=== PATIENT | female | born 1945 | race Two or more races ===

== ENCOUNTER 2021-03-02 21:15 | Inpatient (IN) | payer MEDICARE, OTHER ==
[~2021-03-02] VITALS: Ht 165.1 cm; Wt 93.0 kg
[2021-03-02 22:52] LABS: BASOPHILS % (AUTO) 0.2 % (0.0-2.0); HEMATOCRIT 36 % (33-45); HEMOGLOBIN 12.1 g/dL (11.5-14.8); LYMPHOCYTES # (AUTO) 2.4 K/uL (0.8-4.8); LYMPHOCYTES % (AUTO) 15.6 % (20.0-44.0); MEAN CORPUSCULAR HGB CONC 34 g/dl (31.0-36.0); MEAN CORPUSCULAR VOLUME 89 fL (82-100); MONOCYTES # (AUTO) 0.7 K/uL (0.1-1.30); MONOCYTES % (AUTO) 4.7 % (2.0-12.0); NEUTROPHILS # (AUTO) 11.9 K/uL (1.8-8.9); NEUTROPHILS % (AUTO) 78.5 % (43.0-81.0); PLATELET COUNT (AUTO) 265 K/uL (150-450); RED BLOOD CELL COUNT(AUTO) 4.01 MIL/uL (4.0-5.2); WHITE BLOOD COUNT (AUTO) 15.2 K/uL (4.3-11.0)
[2021-03-02 23:05] LABS: CALCIUM, SERUM 8.4 mg/dL (8.5-10.1); CARBON DIOXIDE 22 mmol/L (21-32); CHLORIDE 104 mmol/L (98-107); CREATININE 1.3 mg/dL (0.6-1.3); GLUCOSE 135 mg/dL (74-106); POTASSIUM 3.5 mmol/L (3.5-5.1); SODIUM SERUM 138 mmol/L (136-145); UREA NITROGEN, BLOOD 23 mg/dL (7-18)
[2021-03-02 23:19] LABS: BILIRUBIN,URINE Negative (NEGATIVE); COLOR,URINE YELLOW (YELLOW); LEUKOCYTE ESTERASE ,URINE Moderate (NEGATIVE); NITRITE, URINE Positive (NEGATIVE); PH,URINE 5.5 (5.0-8.0); PROTEIN,URINE Trace mg/dl (NEGATIVE); UGLUCOSE Negative (NEGATIVE); UROBILINOGEN,URINE 0.2 EU/dL (0.2)
[2021-03-03 00:05] LABS: BACTERIA,URINE Many /HPF (None Seen); SQUAMOUS EPITHELIAL CELL,UR Few /HPF (None Seen); WBC,URINE 21-50 /HPF (0-3)
--- NOTE | 2021-03-03 01:11 | NUR ---
MOVE PACKET SUBMITTED AND WILL OBTAIN AUTHORIZATION
--- NOTE | 2021-03-03 01:17 | NUR ---
COVID SWAB COLLECTED AND SENT TO LAB
[2021-03-03] MEDS ORDERED: NITROFURANTOIN/NITROFURAN MONOHYDRATE 100 MG CAPSULE PO ONE (01:30)
[2021-03-03] MEDS ORDERED: NITROFURANTOIN/NITROFURAN MONOHYDRATE 100 MG CAPSULE ONE (01:59)
--- NOTE | 2021-03-03 02:04 | NUR ---
FOLLLOWED UP WITH LAB. COVID SWAB JUST GOT PICKED UP FROM STAT LAB
--- NOTE | 2021-03-03 03:40 | NUR ---
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
--- NOTE | 2021-03-03 05:07 | NUR ---
still awaiting for pt transfer. er md have spoken to neuro surg of [facility] but still have no transfer no authorization to stay.
--- NOTE | 2021-03-03 05:31 | NUR ---
pt is authorized to stay. Med/Surg
--- NOTE | 2021-03-03 05:56 | NUR ---
[facility] 325-1
[2021-03-03] MEDS ORDERED: IV NS 0.9% 1,000 ML IV PRN (06:00)
[2021-03-03] MEDS ORDERED: hydrALAZINE HCL IV 20 MG VIAL IV PRN (06:00)
[2021-03-03] MEDS ORDERED: ACETAMINOPHEN 325 MG TABLET PO PRN (06:00)
[2021-03-03] MEDS ORDERED: ONDANSETRON HCL/PF 4 MG/2 ML VIAL IVP PRN (06:00)
--- NOTE | 2021-03-03 06:11 | NUR ---
TELEPHONE CALL TO MED SURG 3W TO GIVE REPORT, SPOKE WITH PAT, STATED NO RN AVAILABLE TO TAKE THE PATIENT YET, AND WILL CALL US BACK.
--- NOTE | 2021-03-03 06:40 | NUR ---
PATIENT TRANSFERRED TO MED SURG 325-1 IN STABLE CONDITION. REPORT GIVEN TO DEYA BRODERICK FOR ROBERTO CARLOS.
--- NOTE | 2021-03-03 06:47 | NUR ---
RN NOTE RECEIVED PT FROM Rene VIA [facility] TO RM.325-1 ACCOMPANIED BY DIALYSIS REGISTERED NURSE. PT AWAKE, A/OX4, NO C/O PAIN/DISCOMFORT. VS 144/73, 72, 20, 98.1, 98%. PT IN NO DISTRESS. WILL ENDORSE TO NEXT SHIFT NURSE.
--- NOTE | 2021-03-03 07:52 | NUR ---
MS RN OPENING NOTE RECEIVED PT IN BED WITH EYES CLOSED, EASILY AROUSABLE. A/O X4. PT STABLE ON ROOM AIR. NO SOB OR S/S OF RESPIRATORY DISTRESS. NO COMPLAINTS OF PAIN OR DISCOMFORT AT THIS TIME. IV ACCESS LEFT HAND 20 GAUGE SALINE LOCK, INTACT AND PATENT. SAFETY PRECAUTIONS MAINTAINED. BED IN LOWEST LOCKED POSITION, HOB ELEVATED, SIDE RAILS UP X2, AND CALL LIGHT AND TABLE WITHIN REACH. WILL CONTINUE TO MONITOR.
[2021-03-03 08:00] VITALS: BP 134/68
[2021-03-03] MEDS: ENOXAPARIN SODIUM 40 MG/0.4 ML DISP.SYRIN SQ SCH (08:29)
[2021-03-03] MEDS: CEFTRIAXONE 1 G in IV D5W 50 ML IV SCH (09:15)
--- NOTE | 2021-03-03 12:01 | NUR ---
RN NOTE PT C/O ACHING PAIN IN THE LOWER BACK, RATED 8/10 ON 0-10 PAIN SCALE. JOSE LOPEZ AT PT'S BEDSIDE AND MADE AWARE. RECEIVED ORDERS FOR NORCO 5-325 PO Q6H PRN FOR PAIN. ORDERS READ BACK, ENTERED, AND CARRIED OUT.
[2021-03-03] MEDS: HYDROCODONE/APAP 5/325MG TABLET PO PRN (12:40)
--- NOTE | 2021-03-03 12:40 | NUR ---
RN NOTE - PAIN PT C/O ACHING PAIN IN THE LOWER BACK, RATED 7/10 ON PAIN SCALE. VSS. PER PT REQUEST, ADMINISTERED NORCO 5-325 PO Q6H PRN PER ORDER. WILL CONTINUE TO MONITOR PT.
[2021-03-03] MEDS ORDERED: GADOTERATE MEGLUMINE 10 MMOL/20 ML VIAL IV ONE (17:29)
--- NOTE | 2021-03-03 18:43 | NUR ---
MS RN CLOSING NOTE PT IN AWAKE IN BED. A/O X4. PT STABLE ON ROOM AIR. NO SOB OR S/S OF RESPIRATORY DISTRESS. NO COMPLAINTS OF PAIN OR DISCOMFORT AT THIS TIME. IV ACCESS LEFT HAND 20 GAUGE RUNNING NS @75 ML/HR, INTACT AND PATENT. ALL NEEDS MET AT THIS TIME. SAFETY PRECAUTIONS MAINTAINED AT ALL TIMES. BED IN LOWEST LOCKED POSITION, HOB ELEVATED, SIDE RAILS UP X2, AND CALL LIGHT AND TABLE WITHIN REACH. WILL ENDORSE TO ONCOMING NURSE FOR ROBERTO CARLOS.
--- NOTE | 2021-03-03 19:53 | NUR ---
MS RN OPENING RECEIVED PATIENT IN BED. A/OX4. NO S/S OF APPARENT DISTRESS. NO C/O PAIN. ABLE TO MAKE NEEDS KNOWN. NS RUNNING @75CC/HR. SAFETY IN PLACE. WILL CONTINUE TO MONITOR.
[2021-03-03 20:00] VITALS: BP 129/71
--- NOTE | 2021-03-03 20:00 | NUR ---
MS RN NOTE REPORT GIVEN TO MEGGAN ALMONTE.
[2021-03-03] MEDS: MORPHINE SULFATE INJ 2 MG/ML DISP.SYRIN IV PRN (22:53)
--- NOTE | 2021-03-03 22:53 | NUR ---
PT C/O 9/10 ACHING PAIN ON THE HIP. PER PT REQUEST MORPHINE 2MG/1ML IV Q4HR PRN ADMINISTERED AT THIS TIME PER ORDER. WILL CONTINUE TO MONITOR.
--- NOTE | 2021-03-04 06:30 | NUR ---
MS RN CLOSING NOTE PT REMAINED STABLE THROUGHOUT SHIFT. WILL ENDORSE TO ONCOMING RN FOR ROBERTO CARLOS.
[2021-03-04 06:54] LABS: BASOPHILS % (AUTO) 0.5 % (0.0-2.0); EOSINOPHILS % (AUTO) 5.3 % (0.0-6.0); HEMATOCRIT 33 % (33-45); HEMOGLOBIN 11.3 g/dL (11.5-14.8); LYMPHOCYTES # (AUTO) 2.1 K/uL (0.8-4.8); LYMPHOCYTES % (AUTO) 30.5 % (20.0-44.0); MEAN CORPUSCULAR HGB CONC 34 g/dl (31.0-36.0); MEAN CORPUSCULAR VOLUME 89 fL (82-100); MONOCYTES # (AUTO) 0.6 K/uL (0.1-1.30); MONOCYTES % (AUTO) 9.3 % (2.0-12.0); NEUTROPHILS # (AUTO) 3.8 K/uL (1.8-8.9); NEUTROPHILS % (AUTO) 54.4 % (43.0-81.0); PLATELET COUNT (AUTO) 252 K/uL (150-450); RED BLOOD CELL COUNT(AUTO) 3.71 MIL/uL (4.0-5.2)
[2021-03-04 07:14] LABS: ALBUMIN 3.1 g/dL (3.4-5.0); BILIRUBIN,TOTAL 0.3 mg/dL (0.2-1.0); CALCIUM, SERUM 8.1 mg/dL (8.5-10.1); PHOSPHORUS 4.7 mg/dL (2.5-4.9); POTASSIUM 3.8 mmol/L (3.5-5.1)
--- NOTE | 2021-03-04 07:32 | NUR ---
MS RN OPENING NOTES RECEIVED PT AWAKE ON BED, A/O X4, VERBALLY RESPONSIVE. ON ROOM AIR, NO SOB, NO SIGNS OF ACUTE RESPIRATORY DISTRESS NOTED. NO S/SX OF PAIN OR DISCOMFORT AT THIS TIME. IV ACCESS ON LEFT HAND G#20 INTACT AND PATENT WITH NS @ 75 ML/HR RUNNING. SAFETY MEASURES IN PLACE, BED LOCKED AND IN LOWEST POSITION, SR UP X2, CALL LIGHT PLACED WITHIN EASY REACH. WILL CONTINUE TO MONITOR.
[2021-03-04] MEDS: CEFTRIAXONE 1 G in IV D5W 50 ML IV SCH (09:08)
[2021-03-04] MEDS: ENOXAPARIN SODIUM 40 MG/0.4 ML DISP.SYRIN SQ SCH (09:09)
[2021-03-04] MEDS ORDERED: DULA0.75 SQ (09:15)
[2021-03-04] MEDS ORDERED: LOSA25TA27 PO (09:15)
[2021-03-04] MEDS ORDERED: METF-881 PO (09:15)
[2021-03-04] MEDS: MORPHINE SULFATE INJ 2 MG/ML DISP.SYRIN IV PRN ×2 (16:26→22:54)
--- NOTE | 2021-03-04 18:58 | NUR ---
MS RN CLOSING NOTES PT AWAKE ON BED, A/O X4, VERBALLY RESPONSIVE. ON ROOM AIR, NO SOB, NO SIGNS OF ACUTE RESPIRATORY DISTRESS NOTED. NO S/SX OF PAIN OR DISCOMFORT AT THIS TIME. ALL DUE MEDS GIVEN ORDERED. IV ACCESS ON LEFT HAND G#20 INTACT AND PATENT. SAFETY MEASURES IN PLACE, BED LOCKED AND IN LOWEST POSITION, SR UP X2, CALL LIGHT PLACED WITHIN EASY REACH. WILL ENDORSE TO NEXT SHIFT.
--- NOTE | 2021-03-04 19:00 | NUR ---
MS RN OPENING NOTE RECEIVED PT AWAKE IN BED. A/OX4. NO SOB NOTED. NO S/S RESPIRATORY DISTRESS. PT IS AMBULATORY. PT HAS NO C/O PAIN AT THIS TIME. IV ACCESS IN LEFT HAND # 20 SL. IV IS INTACT, PATENT, AND FLUSHING WELL. SAFETY MEASURES MAINTAINED . BED IN LOWEST LOCKED POSITION, HOB ELEVATED, SIDE RAILS UP X2. CALL LIGHT AND TABLE WITHIN REACH. WILL CONTINUE WITH PLAN OF CARE.
[2021-03-04 20:00] VITALS: BP 127/74
--- NOTE | 2021-03-04 22:54 | NUR ---
PT C/O 9/10 ACHING PAIN ON THE HIP. PER PT REQUEST MORPHINE 2MG/1ML IV Q4HR PRN ADMINISTERED AT THIS TIME PER ORDER. WILL CONTINUE TO MONITOR.
--- NOTE | 2021-03-05 06:30 | NUR ---
MS RN CLOSING NOTE PT REMAINED STABLE THROUGHOUT SHIFT. WILL ENDORSE TO ONCOMING NURSE FOR ROBERTO CARLOS.
--- NOTE | 2021-03-05 07:28 | NUR ---
MS RN OPENING NOTES RECEIVED PT RESTING ON BED, PATIENT IS A/O X4, PATIENT IS BREATHING EVENLY AND NONLABORED ON ROOM AIR, NO SOB, NO SIGNS OF ACUTE RESPIRATORY DISTRESS NOTED. NO S/SX OF PAIN OR DISCOMFORT AT THIS TIME. IV ACCESS ON LEFT HAND G#20 INTACT AND PATENT WITH NS @ 75 ML/HR RUNNING. SAFETY MEASURES IN PLACE, BED LOCKED AND IN LOWEST POSITION, SR UP X2, CALL LIGHT PLACED WITHIN EASY REACH. WILL CONTINUE TO MONITOR.
[2021-03-05] MEDS ORDERED: Hydrocodone/Apap 5/325MG PO (07:55)
[2021-03-05] MEDS ORDERED: CEPH500T PO (07:55)
[2021-03-05 08:00] VITALS: BP 127/71
[2021-03-05] MEDS: ENOXAPARIN SODIUM 40 MG/0.4 ML DISP.SYRIN SQ SCH (08:09)
[2021-03-05] MEDS: CEFTRIAXONE 1 G in IV D5W 50 ML IV SCH (08:09)
[2021-03-05 09:12] LABS: BASOPHILS % (AUTO) 0.3 % (0.0-2.0); EOSINOPHILS % (AUTO) 4.2 % (0.0-6.0); HEMATOCRIT 34 % (33-45); HEMOGLOBIN 11.6 g/dL (11.5-14.8); LYMPHOCYTES % (AUTO) 28.5 % (20.0-44.0); MEAN CORPUSCULAR HGB CONC 34 g/dl (31.0-36.0); MEAN CORPUSCULAR VOLUME 89 fL (82-100); MONOCYTES # (AUTO) 0.6 K/uL (0.1-1.30); PLATELET COUNT (AUTO) 280 K/uL (150-450); RED BLOOD CELL COUNT(AUTO) 3.85 MIL/uL (4.0-5.2)
[2021-03-05 09:40] LABS: CALCIUM, SERUM 8.7 mg/dL (8.5-10.1); CREATININE 0.9 mg/dL (0.6-1.3); MAGNESIUM 1.9 mg/dL (1.8-2.4)
[2021-03-05] MEDS: HYDROCODONE/APAP 5/325MG TABLET PO PRN (11:23)
--- NOTE | 2021-03-05 14:21 | NUR ---
APPLICATIONS SPECIALIST NOTE RECEIVED DISCHARGE ORDER. PATIENT IS NOT AGREEABLE TO ARU OR SNF PREFERRED TO BE HOME, HOME HEALTH WILL BE ARRANGED INSTEAD. PATIENT IS A/O X4. PATIENT IS BREATHING EVENLY AND NONLABORED ON ROOM AIR. PATIENT DOES NOT SHOW SIGNS OF DISTRESS. PATIENT DENIES PAIN OR DISCOMFORT AT THIS TIME. PATIENT WAS GIVEN DISCHARGE INSTRUCTIONS AND PRESCRIPTION. INSTRUCTIONS GIVEN IN WRITTEN AND IN VERBAL FORM. PATIENT VERBALIZED UNDERSTANDING. IV ACCESS REMOVED CATHETER TIP INTACT AND PRESSURE DRESSING APPLIED. NO BLEEDING NOTED. ALL BELONGINGS ACCOUNTED FOR, AND FORM SIGNED. ID BAND REMOVED. PATIENT LEFT IN STABLE CONDITION VIA PRIVATE CAR AND WILL HAVE HOME HEALTH.
== END 2021-03-05 14:30 | disposition home health service (06) | DRG 194 ==
LOC: ER 21:19 → MED 03-03 06:10
PROVIDERS: ADMIT Registered Nurse; ATTEND Registered Nurse
DX: J15.9 Unspecified bacterial pneumonia (principal); N39.0 Urinary tract infection, site not specified; N17.9 Acute kidney failure, unspecified; J98.11 Atelectasis; E66.9 Obesity, unspecified; Z68.34 Body mass index [BMI] 34.0-34.9, adult; A63.0 Anogenital (venereal) warts; Z20.822 Contact with and (suspected) exposure to COVID-19; K80.20 Calculus of gallbladder without cholecystitis without obstruction; Z85.41 Personal history of malignant neoplasm of cervix uteri; Z88.8 Allergy status to other drugs, medicaments and biological substances; B96.89 Other specified bacterial agents as the cause of diseases classified elsewhere; N18.9 Chronic kidney disease, unspecified; M51.35 Other intervertebral disc degeneration, thoracolumbar region; R26.9 Unspecified abnormalities of gait and mobility; R29.6 Repeated falls; M47.816 Spondylosis without myelopathy or radiculopathy, lumbar region; M48.00 Spinal stenosis, site unspecified
CPT/HCPCS: 36415; 71045-TC; 72131-TC; 72158-TC; 76770-TC; 80048-TC; 80053-TC; 81001; 83605-TC; 83735-TC; 84100-TC; 84484-TC; 85025-TC; 87040-TC; 87081-TC; 87086-TC; 87186-TC; 97116-TC; 97530-TC; A9575; C9803; G0378; J0696; J1650; J2270; J7030; J7060

== ENCOUNTER 2024-02-23 05:55 | Inpatient (IN) | payer BC, MEDICAID ==
[~2024-02-23] VITALS: Ht 170.2 cm; Wt 79.4 kg
[~2024-02-23 05:55] MED LIST: CEPH500T PO; DULA0.75 SQ; Hydrocodone/Apap 5/325MG PO; LOSA25TA27 PO; METF-881 PO
[2024-02-23] MEDS: ONDANSETRON HCL/PF 4 MG/2 ML VIAL IVP ONE (06:30)
[2024-02-23] MEDS: MORPHINE SULFATE INJ 2 MG/ML DISP.SYRIN IV ONE (06:30)
[2024-02-23] MEDS: FAMOTIDINE/PF INJ 20 MG/2 ML VIAL IV ONE (06:30)
[2024-02-23] MEDS: IV NS 0.9% 1,000 ML BAG IV ONE (06:30)
[2024-02-23] MEDS ORDERED: MORPHINE SULFATE INJ 4 MG/ML DISP.SYRIN ONE (06:33)
[2024-02-23] MEDS ORDERED: ONDANSETRON HCL/PF 4 MG/2 ML VIAL ONE (06:33)
[2024-02-23] MEDS ORDERED: FAMOTIDINE/PF INJ 20 MG/2 ML VIAL IV ONE (06:33)
[2024-02-23 06:45] LABS: BASOPHILS % (AUTO) 0.1 % (0.0-2.0); EOSINOPHILS % (AUTO) 0.2 % (0.0-6.0); HEMATOCRIT 42 % (33-45); HEMOGLOBIN 14.1 g/dL (11.5-14.8); LYMPHOCYTES # (AUTO) 1.2 K/uL (0.8-4.8); LYMPHOCYTES % (AUTO) 9.2 % (20.0-44.0); MEAN CORPUSCULAR HEMOGLOBIN 29 PG (26.0-33.0); MEAN CORPUSCULAR HGB CONC 34 g/dl (31.0-36.0); MEAN CORPUSCULAR VOLUME 87 fL (82-100); MONOCYTES # (AUTO) 0.4 K/uL (0.1-1.30); MONOCYTES % (AUTO) 3.5 % (2.0-12.0); NEUTROPHILS # (AUTO) 11.1 K/uL (1.8-8.9); PLATELET COUNT (AUTO) 323 K/uL (150-450); RED BLOOD CELL COUNT(AUTO) 4.78 MIL/uL (4.0-5.2); RED CELL DISTRIBUTION WIDTH 14.3 % (11.5-15.0); WHITE BLOOD COUNT (AUTO) 12.7 K/uL (4.3-11.0)
[2024-02-23 07:01] LABS: ALANINE AMINOTRANSFERASE 28 U/L (12-78); ALBUMIN 4.6 g/dL (3.4-5.0); ALKALINE PHOSPHATASE 155 U/L (46-116); ASPARTATE AMINOTRANSFERASE 28 U/L (15-37); BILIRUBIN,DIRECT 0.3 mg/dL (0.0-0.2); BILIRUBIN,TOTAL 0.7 mg/dL (0.2-1.0); CALCIUM, SERUM 10.6 mg/dL (8.5-10.1); CARBON DIOXIDE 21 mmol/L (21-32); CHLORIDE 104 mmol/L (98-107); GLUCOSE 207 mg/dL (74-106); LIPASE 75 U/L (16-77); POTASSIUM 3.9 mmol/L (3.5-5.1); SODIUM SERUM 143 mmol/L (136-145); TOTAL PROTEIN, SERUM 9.6 g/dL (6.4-8.2); UREA NITROGEN, BLOOD 19 mg/dL (7-18)
[2024-02-23 07:20] LABS: APPEARANCE,URINE SLIGHTLY CLOUDY (CLEAR); BILIRUBIN,URINE 1+ (NEGATIVE); BLOOD, URINE NEGATIVE Ery/uL (NEGATIVE); COLOR,URINE YELLOW (YELLOW); KETONES,URINE NEGATIVE (NEGATIVE); LEUKOCYTE ESTERASE ,URINE 1+ (NEGATIVE); NITRITE, URINE NEGATIVE (NEGATIVE); PROTEIN,URINE 2+ mg/dl (NEGATIVE); UGLUCOSE NEGATIVE (NEGATIVE); UROBILINOGEN,URINE 0.2 EU/dL (0.2)
[2024-02-23 07:40] LABS: ADD URINE CULTURE YES; BACTERIA,URINE 3+ /HPF (None Seen); RBC,URINE 0-2 /HPF (0-2); WBC,URINE 21-50 /HPF (0-3)
[2024-02-23] MEDS ORDERED: IOHEXOL-300 100 ML VIAL IV ONE (07:55)
[2024-02-23] MEDS ORDERED: IV NS 0.9% 250 ML IV ONE (07:57)
[2024-02-23] MEDS ORDERED: PROP10DR4 EACHEYE (11:37)
[2024-02-23] MEDS ORDERED: PANT40TA49 PO (11:37)
[2024-02-23] MEDS ORDERED: METF-442 PO (11:37)
[2024-02-23] MEDS ORDERED: GABA600T12 PO (11:37)
[2024-02-23] MEDS ORDERED: TRAZ-252 PO (11:37)
[2024-02-23] MEDS ORDERED: LOSA100T31 PO (11:37)
[2024-02-23] MEDS ORDERED: SERT50TA12 PO (11:37)
[2024-02-23] MEDS ORDERED: GEMF600T PO (11:37)
[2024-02-23 12:00] VITALS: BP 149/75; TEMP 98.1; O2SAT 95
[2024-02-23] MEDS ORDERED: MORPHINE SULFATE INJ 2 MG/ML DISP.SYRIN IV PRN (13:00)
[2024-02-23] MEDS ORDERED: ONDANSETRON HCL/PF 4 MG/2 ML VIAL IVP PRN (13:30)
[2024-02-23] MEDS ORDERED: hydrALAZINE HCL IV 20 MG VIAL IV PRN (13:30)
[2024-02-23] MEDS ORDERED: DEXTROSE 50%-WATER 50 ML DISP.SYRIN IV PRN (14:00)
[2024-02-23] MEDS: CEFEPIME 2 GM in IV D5W 100 ML IV SCH (14:15)
[2024-02-23] MEDS: IV NS 0.9% 1,000 ML IV SCH (14:15)
[2024-02-23] MEDS: MORPHINE SULFATE INJ 2 MG/ML DISP.SYRIN IV PRN (15:30)
[2024-02-23 16:00] VITALS: BP 144/87; TEMP 98.2; O2SAT 99
[2024-02-23] MEDS: GABAPENTIN 300 MG CAPSULE PO SCH (17:00)
[2024-02-23] MEDS: BLOOD SUGAR DIAGNOSTIC 1 EACH STRIP IN SCH (17:49)
[2024-02-23 20:00] VITALS: BP 145/77; TEMP 98.4; O2SAT 96
[2024-02-23] MEDS: INSULIN REGULAR, HUMAN 100 UNIT/ML 3 ML VIAL SQ PRN (21:08)
[2024-02-23] MEDS: TRAZODONE 50 MG TABLET PO SCH (21:14)
[2024-02-24] MEDS: ACETAMINOPHEN 325 MG TABLET PO PRN (02:20)
[2024-02-24 06:23] LABS: BASOPHILS % (AUTO) 0.2 % (0.0-2.0); EOSINOPHILS # (AUTO) 0.1 K/uL (0.0-0.7); EOSINOPHILS % (AUTO) 1.1 % (0.0-6.0); HEMATOCRIT 37 % (33-45); HEMOGLOBIN 12.2 g/dL (11.5-14.8); LYMPHOCYTES # (AUTO) 1.6 K/uL (0.8-4.8); LYMPHOCYTES % (AUTO) 16.6 % (20.0-44.0); MEAN CORPUSCULAR HEMOGLOBIN 29 PG (26.0-33.0); MEAN CORPUSCULAR HGB CONC 33 g/dl (31.0-36.0); MEAN CORPUSCULAR VOLUME 89 fL (82-100); MONOCYTES # (AUTO) 0.7 K/uL (0.1-1.30); MONOCYTES % (AUTO) 6.9 % (2.0-12.0); NEUTROPHILS # (AUTO) 7.4 K/uL (1.8-8.9); NEUTROPHILS % (AUTO) 75.2 % (43.0-81.0); PLATELET COUNT (AUTO) 247 K/uL (150-450); RED BLOOD CELL COUNT(AUTO) 4.14 MIL/uL (4.0-5.2); RED CELL DISTRIBUTION WIDTH 14.4 % (11.5-15.0); WHITE BLOOD COUNT (AUTO) 9.8 K/uL (4.3-11.0)
[2024-02-24 07:12] LABS: ALANINE AMINOTRANSFERASE 22 U/L (12-78); ALBUMIN 3.4 g/dL (3.4-5.0); ALKALINE PHOSPHATASE 108 U/L (46-116); ASPARTATE AMINOTRANSFERASE 21 U/L (15-37); BILIRUBIN,TOTAL 0.5 mg/dL (0.2-1.0); CALCIUM, SERUM 8.8 mg/dL (8.5-10.1); CARBON DIOXIDE 25 mmol/L (21-32); CHLORIDE 112 mmol/L (98-107); CREATININE 0.8 mg/dL (0.6-1.3); GLUCOSE 106 mg/dL (74-106); MAGNESIUM 2.4 mg/dL (1.8-2.4); PHOSPHORUS 4.1 mg/dL (2.5-4.9); POTASSIUM 3.6 mmol/L (3.5-5.1); SODIUM SERUM 147 mmol/L (136-145); TOTAL PROTEIN, SERUM 7.7 g/dL (6.4-8.2); UREA NITROGEN, BLOOD 17 mg/dL (7-18)
[2024-02-24 07:30] VITALS: BP 122/54; TEMP 97.7; O2SAT 97
[2024-02-24] MEDS: SERTRALINE HCL 50 MG TABLET PO SCH (09:00)
[2024-02-24] MEDS: LOSARTAN POTASSIUM 50 MG TABLET PO SCH (09:00)
[2024-02-24 16:00] VITALS: BP 143/75; TEMP 98.2; O2SAT 94
[2024-02-24] MEDS ORDERED: NA PHOS,M-B/NA PHOS,DI-BA 1 EA ENEMA RC PRN ×2 (17:00→17:30)
[2024-02-24] MEDS: NA PHOS,M-B/NA PHOS,DI-BA 1 EA ENEMA RC PRN (17:25)
[2024-02-24] MEDS: IV NS 0.9% 1,000 ML IV PRN (18:54)
[2024-02-24 20:00] VITALS: BP 151/78; TEMP 98.1; O2SAT 95
[2024-02-24] MEDS: HEPARIN SODIUM, PORCINE 5000 UNITS/1 ML VIAL SQ SCH (21:38)
[2024-02-25 07:23] LABS: BASOPHILS % (AUTO) 0.3 % (0.0-2.0); EOSINOPHILS # (AUTO) 0.2 K/uL (0.0-0.7); HEMATOCRIT 34 % (33-45); HEMOGLOBIN 11.5 g/dL (11.5-14.8); LYMPHOCYTES # (AUTO) 1.6 K/uL (0.8-4.8); MEAN CORPUSCULAR HEMOGLOBIN 30 PG (26.0-33.0); MEAN CORPUSCULAR HGB CONC 34 g/dl (31.0-36.0); MEAN CORPUSCULAR VOLUME 89 fL (82-100); MONOCYTES # (AUTO) 0.6 K/uL (0.1-1.30); MONOCYTES % (AUTO) 7.3 % (2.0-12.0); NEUTROPHILS # (AUTO) 6.5 K/uL (1.8-8.9); NEUTROPHILS % (AUTO) 72.4 % (43.0-81.0); PLATELET COUNT (AUTO) 249 K/uL (150-450); RED BLOOD CELL COUNT(AUTO) 3.86 MIL/uL (4.0-5.2); WHITE BLOOD COUNT (AUTO) 8.9 K/uL (4.3-11.0)
[2024-02-25 07:30] VITALS: BP 154/79; TEMP 98.1; O2SAT 92
[2024-02-25 07:43] LABS: CALCIUM, SERUM 8.8 mg/dL (8.5-10.1); CARBON DIOXIDE 21 mmol/L (21-32); CHLORIDE 111 mmol/L (98-107); CREATININE 0.7 mg/dL (0.6-1.3); GLUCOSE 89 mg/dL (74-106); POTASSIUM 3.2 mmol/L (3.5-5.1); SODIUM SERUM 145 mmol/L (136-145); UREA NITROGEN, BLOOD 18 mg/dL (7-18)
[2024-02-25] MEDS: POTASSIUM CHLORIDE 20 MEQ TAB.PRT.SR PO SCH (10:00)
[2024-02-25] MEDS: POTASSIUM CL. PREMIX PERIPHER. 50 ML IV SCH (11:04)
[2024-02-25] MEDS ORDERED: DIATR MEGLU/DIATRIZOATE SODIUM 120 ML BOTTLE (GASTROGRAPHIN) ONE (15:52)
[2024-02-25 20:00] VITALS: BP 153/75; TEMP 98.1; O2SAT 94
[2024-02-26 06:34] LABS: CALCIUM, SERUM 8.9 mg/dL (8.5-10.1); CARBON DIOXIDE 22 mmol/L (21-32); CHLORIDE 112 mmol/L (98-107); CREATININE 0.8 mg/dL (0.6-1.3); GLUCOSE 101 mg/dL (74-106); POTASSIUM 3.2 mmol/L (3.5-5.1); SODIUM SERUM 145 mmol/L (136-145); UREA NITROGEN, BLOOD 22 mg/dL (7-18)
[2024-02-26 06:48] LABS: BASOPHILS % (AUTO) 0.5 % (0.0-2.0); EOSINOPHILS # (AUTO) 0.1 K/uL (0.0-0.7); EOSINOPHILS % (AUTO) 1.4 % (0.0-6.0); HEMATOCRIT 35 % (33-45); HEMOGLOBIN 11.8 g/dL (11.5-14.8); LYMPHOCYTES # (AUTO) 1.6 K/uL (0.8-4.8); LYMPHOCYTES % (AUTO) 17.6 % (20.0-44.0); MEAN CORPUSCULAR HEMOGLOBIN 30 PG (26.0-33.0); MEAN CORPUSCULAR HGB CONC 34 g/dl (31.0-36.0); MEAN CORPUSCULAR VOLUME 87 fL (82-100); MONOCYTES # (AUTO) 0.7 K/uL (0.1-1.30); MONOCYTES % (AUTO) 7.6 % (2.0-12.0); NEUTROPHILS # (AUTO) 6.7 K/uL (1.8-8.9); NEUTROPHILS % (AUTO) 72.9 % (43.0-81.0); PLATELET COUNT (AUTO) 275 K/uL (150-450); RED BLOOD CELL COUNT(AUTO) 3.98 MIL/uL (4.0-5.2); RED CELL DISTRIBUTION WIDTH 13.7 % (11.5-15.0); WHITE BLOOD COUNT (AUTO) 9.1 K/uL (4.3-11.0)
[2024-02-26 07:30] VITALS: BP 137/55; TEMP 98.1; O2SAT 96
[2024-02-26] MEDS: POTASSIUM CL. PREMIX PERIPHER. 50 ML IV SCH (10:17)
[2024-02-26 20:00] VITALS: BP 130/74; TEMP 98; O2SAT 96
[2024-02-27 06:31] LABS: CALCIUM, SERUM 8.6 mg/dL (8.5-10.1); CARBON DIOXIDE 20 mmol/L (21-32); CHLORIDE 108 mmol/L (98-107); CREATININE 0.7 mg/dL (0.6-1.3); GLUCOSE 102 mg/dL (74-106); POTASSIUM 3.3 mmol/L (3.5-5.1); SODIUM SERUM 139 mmol/L (136-145); UREA NITROGEN, BLOOD 15 mg/dL (7-18)
[2024-02-27 08:00] VITALS: BP 133/66; TEMP 97.5; O2SAT 97; O2SAT 99
[2024-02-27] MEDS: POTASSIUM CHLORIDE 20 MEQ TAB.PRT.SR PO SCH (09:29)
[2024-02-27] MEDS: POLYETHYLENE GLYCOL 3350 17 GM POWD.PACK PO SCH (09:29)
[2024-02-27 16:00] VITALS: BP 149/72; TEMP 98.4; O2SAT 100
[2024-02-27 20:32] VITALS: BP 118/83; TEMP 99; O2SAT 95
[2024-02-27] MEDS: NITROFURANTOIN/MONOHYDRATE MACROCRYSTALS 100 MG CAPSULE PO SCH (21:13)
[2024-02-28 06:30] LABS: BASOPHILS % (AUTO) 0.6 % (0.0-2.0); EOSINOPHILS # (AUTO) 0.3 K/uL (0.0-0.7); EOSINOPHILS % (AUTO) 3.8 % (0.0-6.0); HEMATOCRIT 32 % (33-45); HEMOGLOBIN 11.2 g/dL (11.5-14.8); LYMPHOCYTES # (AUTO) 1.9 K/uL (0.8-4.8); LYMPHOCYTES % (AUTO) 27.9 % (20.0-44.0); MEAN CORPUSCULAR HEMOGLOBIN 30 PG (26.0-33.0); MEAN CORPUSCULAR HGB CONC 35 g/dl (31.0-36.0); MEAN CORPUSCULAR VOLUME 87 fL (82-100); MONOCYTES # (AUTO) 0.6 K/uL (0.1-1.30); NEUTROPHILS % (AUTO) 58.7 % (43.0-81.0); PLATELET COUNT (AUTO) 242 K/uL (150-450); RED BLOOD CELL COUNT(AUTO) 3.72 MIL/uL (4.0-5.2); RED CELL DISTRIBUTION WIDTH 13.9 % (11.5-15.0); WHITE BLOOD COUNT (AUTO) 6.9 K/uL (4.3-11.0)
[2024-02-28 07:01] LABS: CALCIUM, SERUM 8.8 mg/dL (8.5-10.1); CARBON DIOXIDE 20 mmol/L (21-32); CHLORIDE 105 mmol/L (98-107); CREATININE 0.7 mg/dL (0.6-1.3); GLUCOSE 134 mg/dL (74-106); POTASSIUM 3.4 mmol/L (3.5-5.1); SODIUM SERUM 136 mmol/L (136-145); UREA NITROGEN, BLOOD 14 mg/dL (7-18)
[2024-02-28 08:00] VITALS: BP_SYST 134; BP_DIAS 60; BP_DIAS 64; TEMP 97.3; O2SAT 96
[2024-02-28 09:36] VITALS: BP 134/64
[2024-02-28] MEDS: POTASSIUM CHLORIDE 20 MEQ TAB.PRT.SR PO SCH (09:36)
== END 2024-02-28 17:20 | disposition home or self-care (01) | DRG 389 ==
LOC: ER 05:57 → MED 11:42
PROVIDERS: ADMIT Internal Medicine; ATTEND Internal Medicine
DX: K56.609 Unspecified intestinal obstruction, unspecified as to partial versus complete obstruction (principal); N39.0 Urinary tract infection, site not specified; Z85.41 Personal history of malignant neoplasm of cervix uteri; E11.9 Type 2 diabetes mellitus without complications; I10 Essential (primary) hypertension; Z79.84 Long term (current) use of oral hypoglycemic drugs; Z90.49 Acquired absence of other specified parts of digestive tract; D72.829 Elevated white blood cell count, unspecified; Z92.3 Personal history of irradiation; B96.20 Unspecified Escherichia coli [E. coli] as the cause of diseases classified elsewhere; E87.6 Hypokalemia; K29.70 Gastritis, unspecified, without bleeding
CPT/HCPCS: 36415; 71045-TC; 74018; 74250-TC; 80048-TC; 80053-TC; 80076-TC; 81001; 82962-TC; 83605-TC; 83690-TC; 83735-TC; 84100-TC; 84484-TC; 85025-TC; 87081-TC; 87086-TC; 97110-TC; 97112-TC; 97116-TC; 97530-TC; 97535-TC; A4223; G0378; J0692; J1644; J1815; J2270; J2405; J3480; J3490; J7030; J7050; J7060; Q9963; Q9967

== ENCOUNTER 2024-10-13 05:38 | Emergency (ER) | payer BC, MEDICAID ==
[~2024-10-13] VITALS: Ht 162.6 cm; Wt 77.1 kg
[~2024-10-13 05:38] MED LIST changes: -CEPH500T PO; +GABA600T12 PO; +GEMF600T PO; -Hydrocodone/Apap 5/325MG PO; +LOSA100T31 PO; -LOSA25TA27 PO; +METF-442 PO; -METF-881 PO; +PANT40TA49 PO; +PROP10DR4 EACHEYE; +SERT50TA12 PO; +TRAZ-252 PO
[2024-10-13 06:07] LABS: PLATELET COUNT (AUTO) 355 K/uL (150-450); RED BLOOD CELL COUNT(AUTO) 4.89 MIL/uL (4.0-5.2); RED CELL DISTRIBUTION WIDTH 14.9 % (11.5-15.0); WHITE BLOOD COUNT (AUTO) 16.1 K/uL (4.3-11.0)
[2024-10-13] MEDS ORDERED: ONDANSETRON HCL/PF 4 MG/2 ML VIAL ONE (06:10)
[2024-10-13] MEDS: IV NS 0.9% 1,000 ML BAG IV ONE (06:13)
[2024-10-13] MEDS: ONDANSETRON HCL/PF 4 MG/2 ML VIAL IV ONE (06:14)
[2024-10-13 06:18] LABS: ASPARTATE AMINOTRANSFERASE 20.0 U/L (15-37); CALCIUM, SERUM 10.2 mg/dL (8.5-10.1); CREATININE 1.2 mg/dL (0.6-1.3); SODIUM SERUM 140.0 mmol/L (136-145); TOTAL PROTEIN, SERUM 9.5 g/dL (6.4-8.2); UREA NITROGEN, BLOOD 26.0 mg/dL (7-18)
[2024-10-13 06:19] LABS: INR 0.99 (0.91-1.10)
[2024-10-13] MEDS ORDERED: ONDA4TAB5 PO (08:06)
[2024-10-13] MEDS ORDERED: METR500T PO (08:06)
[2024-10-13] MEDS ORDERED: CIPR-262 PO (08:06)
[2024-10-13 10:49] VITALS: BP 154/90; TEMP 98.6; O2SAT 95
== END 2024-10-13 10:50 | disposition home or self-care (01) ==
LOC: ER 05:39
DX: K52.9 Noninfective gastroenteritis and colitis, unspecified (principal); I10 Essential (primary) hypertension; E11.9 Type 2 diabetes mellitus without complications; E78.5 Hyperlipidemia, unspecified; G89.29 Other chronic pain; M19.90 Unspecified osteoarthritis, unspecified site; Z79.84 Long term (current) use of oral hypoglycemic drugs; Z79.899 Other long term (current) drug therapy; Z85.41 Personal history of malignant neoplasm of cervix uteri
CPT/HCPCS: 99285; 74176; 96374; 85025; 80048; 83690; 80076; 36415; 85730; J2405; J7040; A4223